=== PATIENT | male | born 1960 | race Caucasian/White ===

== ENCOUNTER 2024-09-29 12:14 | Emergency (ER) | payer OTHER ==
[2024-09-29] MEDS: Sodium Chloride 0.9% 2,000 ML IV ONE (12:20)
[2024-09-29] MEDS ORDERED: Sodium Chloride 0.9% 10 ML Syringe FLUSH PRN (13:25)
[2024-09-29] MEDS ORDERED: Iopamidol 612 MG/ML 100 ML Bottle IVPUSH ONE (13:25)
[2024-09-29] MEDS: Sodium Chloride 0.9% 10 ML Syringe FLUSH PRN (13:28)
[2024-09-29 13:39] LABS: BASOPHILS PERCENT AUTO 0.3 % (0.0-1.0); EOSINOPHILS ABSOLUTE AUTO 0.1 K/mm3 (0.0-0.4); EOSINOPHILS PERCENT AUTO 0.4 % (0.0-6.0); HEMATOCRIT 34.3 % (42.0-52.0); HEMOGLOBIN 10.9 gm/dl (14.0-18.0); IMMATURE GRAN ABSOLUTE AUTO 0.08 K/mm3 (0.00-0.05); IMMATURE GRAN PERCENT AUTO 0.7 % (0.0-0.4); LYMPHOCYTES ABSOLUTE AUTO 1.3 K/mm3 (1.0-4.8); LYMPHOCYTES PERCENT AUTO 11.6 % (24.0-44.0); MEAN CORPUSCULAR HEMOGLOBIN 32.5 pg (28.0-32.0); MEAN CORPUSCULAR HGB CONC 31.8 g/dl (32.0-36.0); MEAN CORPUSCULAR VOLUME 102.4 fl (83.0-99.0); MEAN PLATELET VOLUME 10.1 fl (9.4-12.4); MONOCYTES PERCENT AUTO 9.1 % (0.0-8.0); NEUTROPHILS ABSOLUTE AUTO 8.7 K/mm3 (1.8-7.7); NEUTROPHILS PERCENT AUTO 77.9 % (41.0-71.0); PLATELET COUNT,PLT 219 K/mm3 (150-400); RED BLOOD CELL COUNT 3.35 M/mm3 (4.52-5.90)
[2024-09-29] MEDS: Hydrocortisone Sodium Succinate 100 MG/2 ML SDV IVPUSH ONE (13:59)
[2024-09-29 14:00] LABS: ALBUMIN 2.9 g/dl (3.4-5.0); ANION GAP 21.2 (5-15); BILIRUBIN TOTAL 0.2 mg/dL (0.2-1.0); BUN/CREATININE RATIO 9.1 (14-18); CALCIUM 7.9 mg/dL (8.5-10.1); CREATININE 10.2 mg/dL (0.7-1.3); EST CRCL DRUG DOSING (CG) 6.99 mL/min; PROTEIN TOTAL,TP 5.9 g/dl (6.4-8.2)
[2024-09-29] MEDS ORDERED: SODIUM CHLORIDE 0.9% IV SCH (14:00)
[2024-09-29] MEDS ORDERED: VASOPRESSIN IV SCH (14:00)
[2024-09-29] MEDS ORDERED: Piperacillin/Tazobactam 4.5 GM in Sodium Chloride 0.9% 100 ML IV ONE (14:02)
[2024-09-29 14:07] LABS: POTASSIUM,K 6.2 mEq/L (3.5-5.1)
[2024-09-29] MEDS: Insulin Regular, Human 100 Units/ML 10 ML Vial IV ONE (14:16)
[2024-09-29] MEDS: Calcium Gluconate 10% 1 GM/10 ML SDV IV ONE (14:19)
[2024-09-29] MEDS: VANCOmycin 1.25 GM/250 ML 1.25 GM in Premix Bag 1 BAG IV ONE (14:34)
[2024-09-29] MEDS: Piperacillin/Tazobactam 4.5 GM Vial IV ONE (14:41)
[2024-09-29] MEDS: 50% Dextrose in Water 50 ML Syringe IVPUSH ONE (14:45)
[2024-09-29] MEDS: Sodium Bicarbonate 8.4% 50 MEQ/50 ML Syringe IVPUSH ONE (14:55)
[2024-09-29] MEDS: Norepinephrine 8 MG in Dextrose 5% in Water 242 ML IV SCH (15:40)
[2024-09-29] MEDS: Sodium Bicarbonate 150 MEQ in Dextrose 5% in Water 1,000 ML IV ONE (15:56)
[2024-09-29 17:04] LABS: APPEARANCE,URINE CLEAR (Clear); BILIRUBIN,URINE NEGATIVE (Negative); COLOR,URINE YELLOW (Yellow); GLUCOSE,URINE TRACE (Negative); KETONES,URINE NEGATIVE (Negative); LEUKOCYTE ESTERASE,URINE NEGATIVE (Negative); NITRITE,URINE NEGATIVE (Negative); OCCULT BLOOD,URINE TRACE-LYSED (Negative); PH,URINE 5.5 (5.0-8.0); PROTEIN,URINE 1+ (Negative); UROBILINOGEN,URINE 0.2 (0.2-1.0)
[2024-09-29 17:24] LABS: RBC,URINE 0-5 /hpf (0-5); SQUAMOUS EPITHELIAL CELLS,UR 0-5 /hpf (0-5); WBC,URINE 0-5 /hpf (0-5)
[2024-09-29 17:25] LABS: BACTERIA,URINE FEW /hpf (FEW); MUCUS,URINE FEW /hpf (FEW)
== END 2024-09-29 17:00 ==
LOC: JD.ED 12:14
DX: E86.0 Dehydration (principal); R57.9 Shock, unspecified; I10 Essential (primary) hypertension; Z79.82 Long term (current) use of aspirin; Z79.899 Other long term (current) drug therapy
CPT/HCPCS: 36415; 71045; 80053; 81001; 83605; 84484; 85025; 87428; 93005; 96361; 96365; 96366; 96368; 96375; 96376; 99285; J0612; J1720; J1815; J2543; J3372; J3490; J7030; J7060; 93010; 99291; 99292